=== PATIENT | male | born 1980 | race Caucasian/White ===

== ENCOUNTER → 2020-03-30 | Outpatient (CLI) | payer MEDICARE, MEDICAID | LOC: M LABSMTC 09:39 | PROVIDERS: ATTEND Orthopaedic Surgery Sports Medicine | DX: Z01.812 Encounter for preprocedural laboratory examination (principal); Z20.828 Contact with and (suspected) exposure to other viral communicable diseases ==

== ENCOUNTER → 2020-03-30 | Outpatient (CLI) | payer MEDICAID, MEDICARE ==
--- NOTE | 2020-03-31 09:37 | ECGEPIP ---
[facility] Test Date: 2020-03-30 Pat Name: ALEXANDRU VIRGEN Department: Room: - Gender: Male Manager Quantitative: LILIA : 1980 Requested By: REBEKA FLEMING Order Number: [id number] Reading MD: Jayson Car Measurements Intervals [place] Rate: 71 P: 52 NH: 150 QRS: 31 QRSD: 106 T: 25 QT: 365 QTc: 397 Interpretive Statements Normal sinus rhythm Nonspecific T wave abnormality Comparison tracing not on file Electronically Signed on 03-31-2020 9:37:17 EDT by Jayson Car
== END ==
LOC: M EKG 08:40
PROVIDERS: ATTEND Orthopaedic Surgery Sports Medicine
DX: Z01.810 Encounter for preprocedural cardiovascular examination (principal); Z20.828 Contact with and (suspected) exposure to other viral communicable diseases
CPT/HCPCS: 93005; U0003

== ENCOUNTER → 2020-07-17 | Outpatient (CLI) | payer MEDICARE, MEDICAID ==
--- NOTE | 2020-07-17 11:03 | REP ---
INDICATION: RECHECK. COMPARISON: None. TECHNIQUE: AP and lateral views right knee. FINDINGS: Osseous structures, joint spaces, and surrounding soft tissues appear normal. IMPRESSION: Normal AP and lateral views of the right knee <Electronically signed by Marvin Canales > 07/17/20 1052
== END ==
LOC: M SOG 10:30
PROVIDERS: ATTEND Orthopaedic Surgery Sports Medicine
DX: M06.9 Rheumatoid arthritis, unspecified (principal); Z47.89 Encounter for other orthopedic aftercare

== ENCOUNTER → 2020-07-20 | Outpatient (CLI) | payer MEDICAID, MEDICARE ==
--- NOTE | 2020-07-20 09:16 | REP ---
INDICATION: HTN PRIMARY COMPARISON: None TECHNIQUE: Real time torrez scale ultrasound examination using curved array transducer followed by color Doppler evaluation of the renal vasculature. FINDINGS: The bilateral kidneys demonstrate normal contour, size, echogenicity, and reniform shape without hydronephrosis. Right kidney measures 13.4 x 4.1 x 6.4 cm. Left kidney measures 13.4 x 4.5 x 5.2 cm. Bladder is unremarkable and bilateral ureteral jets are noted. Color Doppler evaluation of the renal arteries appears normal. Two right renal arteries are noted. Peak aortic velocity: 86.1 centimeters/second RIGHT KIDNEY Renal arterial velocity: 72.8 and 53.5 centimeters/second Renal-aortic ratio: 0.8 and 0.6 respectively Intrarenal resistive indices: 0.51-0.68 Intrarenal acceleration times: 0.033-0.053 LEFT KIDNEY Renal arterial velocity: 55.6 centimeters/second Renal-aortic ratio: 0.6 Intrarenal resistive indices: 0.52-0.52 Intrarenal acceleration times: 0.028-0.039 IMPRESSION: 1. Kidneys appear normal. 2. Doppler interegation without sonographic evidence for renal arterial stenosis. 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 <Electronically signed by Marvin Canales > 07/20/20 [id number]
== END ==
LOC: M RAD 07:15
PROVIDERS: ATTEND Internal Medicine Cardiovascular Disease
DX: I10 Essential (primary) hypertension (principal)

== ENCOUNTER → 2020-10-23 | Outpatient (CLI) | payer MEDICARE ==
--- NOTE | 2020-10-23 14:55 | REP ---
INDICATION: OTH MENISCUS DERANGEMENT. COMPARISON: Comparison right knee radiographs are from 17 July 2020.. TECHNIQUE: Axial, coronal, and sagittal imaging planes utilized. T1, proton density, and T2 weighted scans are included with without fat saturation. FINDINGS: Cortical and medullary bone signal intensity are normal. There is a small quantity of joint fluid no significant effusion. There is a small Morris's cyst in the posteromedial popliteal soft tissues. There is focal thickening of the medial margin of the mid patellar tendon consistent with patellar tendinitis or prior injury with fibrosis. This is T1 hypointense and T2 hypointense. There is mild inferior pole articular spurring of the patella consistent with early osteoarthritis. Quadriceps tendon is unremarkable. Patellar tendon is otherwise intact. A normal fabella is noted posterolaterally. Anterior and posterior cruciate ligaments have an intact appearance. There is no evidence of medial or lateral collateral ligament disruption. No medial or lateral meniscal tear is appreciated. No articular cartilaginous lesion is seen. IMPRESSION: Small amount of joint fluid and a tiny Morris's cyst. Mild articular margin spurring of the inferior pole of the patella. Focal thickening/fibrosis along the medial aspect of the patellar tendon question prior injury or fibrosis. <Electronically signed by Sid Felipe > 10/23/20 0190
== END ==
LOC: M PLARAD 12:20
PROVIDERS: ATTEND Orthopaedic Surgery Sports Medicine
DX: M23.321 Other meniscus derangements, posterior horn of medial meniscus, right knee (principal); M71.21 Synovial cyst of popliteal space [Baker], right knee; M25.461 Effusion, right knee

== ENCOUNTER → 2021-06-08 | Outpatient (CLI) | payer MEDICARE ==
[~2021-06-08] MED LIST: ATOR40TA75 PO; D31000TA2 PO; DULO1CAP6 PO; GABA600T4 PO; HYDR200T3 PO; LEVO100T5 PO; METO1TAB33 PO; NITR0.4S14; OMEP1CAP73 PO; TIZA4CAP PO
== END ==
LOC: M LABSMTC 09:59
PROVIDERS: ATTEND Anesthesiology
DX: Z01.812 Encounter for preprocedural laboratory examination (principal); Z20.822 Contact with and (suspected) exposure to COVID-19

== ENCOUNTER 2021-06-13 07:00 | Day surgery (SDC) | payer MEDICARE, MEDICAID ==
[~2021-06-13] VITALS: Ht 182.9 cm; Wt 112.9 kg
[~2021-06-13 07:00] MED LIST changes: +EMLA CREAM 5GM TUBE (LIDOCAINE/PRILOCAINE) TOP PRN; +LIDOCAINE 1% MDV 20ML VIAL SQ PRN; +LR 1,000 ML IV ONE; -NITR0.4S14
[2021-06-13] MEDS ORDERED: propofoL 200 MG/20 ML VIAL As Ordered ONE (07:18)
[2021-06-13] MEDS ORDERED: LIDOCAINE 2% 100MG/5ML SDV (FOR ANES.) As Ordered ONE (07:18)
[2021-06-13] MEDS ORDERED: ROCURONIUM BROMIDE 50 MG/5 ML VIAL As Ordered ONE (07:18)
[2021-06-13] MEDS ORDERED: MIDAZOLAM INJ 2MG/2ML VIAL (J2250 PER 1MG) As Ordered ONE (07:19)
[2021-06-13] MEDS ORDERED: fentaNYL 250 MCG/5 ML INJECTION As Ordered ONE (07:19)
[2021-06-13] MEDS ORDERED: LIDOCAINE W/EPINEPHRINE 1% 20ML VIAL As Ordered ONE (07:56)
[2021-06-13] MEDS ORDERED: BUPIVACAINE/EPIN 0.5% 30 ML VIAL As Ordered ONE (07:57)
[2021-06-13] MEDS ORDERED: NITR0.4S14 (08:03)
[2021-06-13] MEDS ORDERED: dexameTHASONE 4 MG/ML 1ML VIAL (J1100 PER 1MG) As Ordered ONE (08:35)
[2021-06-13] MEDS ORDERED: ACETAMINOPHEN 1000MG 100ML IV BTL (OFIRMEV) (J0131 PER 10MG) As Ordered ONE (08:35)
[2021-06-13] MEDS ORDERED: ONDANSETRON 4MG/2ML VIAL As Ordered ONE (08:35)
[2021-06-13] MEDS ORDERED: KETOROLAC 60MG 2ML VIAL As Ordered ONE (08:35)
[2021-06-13] MEDS ORDERED: SUGAMMADEX SODIUM 500 MG/5 ML VIAL (BRIDION) As Ordered ONE (08:39)
[2021-06-13] MEDS ORDERED: LR 1,000 ML IV SCH ×2 (09:20)
[2021-06-13] MEDS ORDERED: ONDANSETRON 4MG/2ML VIAL IV PRN (09:20)
[2021-06-13] MEDS: fentaNYL 100 MCG/2 ML INJECTION IV PRN ×4 (09:30→09:53)
[2021-06-13] MEDS: oxyCODONE 5MG TAB PO PRN ×2 (09:30→10:00)
[2021-06-13 10:55] VITALS: BP 136/86
== END 2021-06-13 10:55 | disposition home or self-care (01) ==
LOC: M SDC 07:00
PROVIDERS: ATTEND Otolaryngology
DX: J35.01 Chronic tonsillitis (principal); G47.33 Obstructive sleep apnea (adult) (pediatric); I10 Essential (primary) hypertension; E78.5 Hyperlipidemia, unspecified; E03.9 Hypothyroidism, unspecified; Z88.8 Allergy status to other drugs, medicaments and biological substances; Z79.899 Other long term (current) drug therapy
CPT/HCPCS: 42826; 88302; J0131; J1100; J1885; J2250; J2405; J3010